=== PATIENT | female | born 1985 | race Caucasian/White ===

== ENCOUNTER → 2017-01-28 | Outpatient (CLI) | payer OTHER ==
[~2017-01-28] MED LIST: ASACOL400 MG PO; AUGMENTIN PO; CIPRO PO; CLINDAMYCIN HC300 MG PO; COGENTIN2 MG PO; DYAZIDE 37.5/251 CAP PO; FERRO-TIME325 MG PO; FLAGYL250 M1 PO; FLINTSTONES T100 MCG PO; HALDOL PO; IMODIUM2 MG; LOPERAMIDE HCL2 M1 PO; LORTAB 5/500 TA1 TA1 PO; LUNESTA2 M1 PO; METOPROLOL TAR25 MG PO; PHENERGAN PO; PHENERGAN25 MG PO; PREDNISONE PO; PRENATAL1 TA1; PRENATAL1 TA1 PO; PRILOSEC PO; PRILOSEC40 MG PO; TEGRETOL PO; TEGRETOL100 MG PO; VITAMIN B-650 MG PO; ZANTAC150 M1 PO
== END | disposition home or self-care (01) ==
LOC: CSSDAY 08:28
DX: E27.9 Disorder of adrenal gland, unspecified (principal); E27.1 Primary adrenocortical insufficiency; Z79.899 Other long term (current) drug therapy
CPT/HCPCS: 82024; 82533; 96374; J0833